=== PATIENT | male | born 2000 | race Hispanic/Latino ===

== ENCOUNTER 2020-10-30 13:04 | Emergency (ER) | payer SELFPAY ==
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
[2020-10-30 13:08] VITALS: BP 138/83; PULSE 95; RESP 16; TEMP 37.3; O2SAT 99
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
--- NOTE | 2020-10-30 14:24 | PC.NURSE ---
PT YELLING OUT FROM ROOM. ATTEMPTED TO TAKE OFF C-COLLAR. SPOKE WITH DR VELARDE WHO OK'ED COLLAR TO BE REMOVED AND STATES HE WILL SPEAK WITH PT SHAY.
[2020-10-30 14:30] VITALS: BP 135/80; PULSE 108; RESP 18; O2SAT 96
== END 2020-10-30 14:30 | disposition home or self-care (01) ==
PROVIDERS: Emergency Provider Emergency Medicine
DX: S00.03XA Contusion of scalp, initial encounter (principal); Y08.02XA Assault by strike by baseball bat, initial encounter
CPT/HCPCS: 70450; 70486; 72125; 99284

== ENCOUNTER 2022-05-19 06:04 | Emergency (ER) | payer SELFPAY ==
[2022-05-19 06:12] VITALS: BP 135/87; PULSE 95; RESP 18; TEMP 36.9; O2SAT 100
--- NOTE | 2022-05-19 08:48 | ED.EAR ---
HPI - Ear Problem General Chief complaint: Ear Stated complaint: bilateral ear pain Time Seen by Provider: 05/19/22 08:31 Source: patient and family Mode of arrival: ambulatory Limitations: no limitations History of Present Illness HPI Narrative: 21 years old male presents with bilateral ear aches mainly right 1. Patient denies any fever, chills, nausea, vomiting, patient use Q-tips to clean ears. No recent swimming in a pool. Related Data Allergies Allergy/AdvReac Type Severity Reaction Status Date / Time No Known Allergies Allergy Unknown Unverified 05/19/22 07:44 Review of Systems Review of Systems: All systems reviewed & are unremarkable except as noted in HPI and below PMFSH Past Medical History Medical History Healthy adult male Surgical History Surgical History No history of previous surgery Social History Social History Tobacco type: cigarettes Exam Narrative: General appearance: Well-developed, well-nourished Skin: Normal color Head: Normocephalic, nontraumatic Eyes: Clear conjunctiva ENT: Oropharynx normal, severe tenderness, auditory canal, swelling, slight clear discharge, mainly right ear. Neck: Supple, nontender Chest and respiratory: Airway patent, no respiratory distress, no accessory muscle use Heart: Regular rate/rhythm Neurologic: Alert and oriented ?3, SUPERVISOR PROCESS TESTING is normal as tested, no gross motor deficit Course Course Emergency Course: Stable Vital Signs Vital signs: Vital Signs Temperature 36.9 C 05/19/22 06:12 Pulse Rate 95 05/19/22 06:12 Respiratory Rate 18 05/19/22 06:12 Blood Pressure 135/87 05/19/22 06:12 Pulse Oximetry 100 05/19/22 06:12 Oxygen Delivery Room Air 05/19/22 06:12 Temperature 36.9 C 05/19/22 06:12 Pulse Rate 95 05/19/22 06:12 Respiratory Rate 18 05/19/22 06:12 Blood Pressure 135/87 05/19/22 06:12 Pulse Oximetry 100 05/19/22 06:12 Oxygen Delivery Room Air 05/19/22 06:12 Medical Decision Making Vital Signs Vital Signs: Vital Signs Temperature 36.9 C 05/19/22 06:12 Pulse Rate 95 05/19/22 06:12 Respiratory Rate 18 05/19/22 06:12 Blood Pressure 135/87 05/19/22 06:12 Pulse Oximetry 100 05/19/22 06:12 Oxygen Delivery Room Air 05/19/22 06:12 Temperature 36.9 C 05/19/22 06:12 Pulse Rate 95 05/19/22 06:12 Respiratory Rate 18 05/19/22 06:12 Blood Pressure 135/87 05/19/22 06:12 Pulse Oximetry 100 05/19/22 06:12 Oxygen Delivery Room Air 05/19/22 06:12 Discharge Plan Discharge Clinical Impression: Otitis externa Patient Disposition: Home, Self-Care Condition: Stable Instructions: Antibiotic Form, Earache (ED) Additional Instructions: Return if symptoms are worsening , call your family physician for appointment, take Tylenol as as needed for aches and pain, continue home medications., Take ibuprofen 600 every 6 hours as needed, Tylenol 650 every 6 hours as needed Prescriptions: New azithromycin [Zithromax] 250 mg tablet See Rx Instructions PO .COMPLEX Qty: 6 0RF Rx Instructions: take 500 mg today (day 1), then 250 mg for 4 days (days 2-5) Cortisporin-TC 3.3-3-10-0.5 mg/mL drops,suspension 4 drp EACH EAR TID Qty: 10 0RF Follow-up/Referrals: PHYSICIAN,BATHHOUSE KEEPER [Primary Care Provider] - Wilian Rodriguez MD [Physician] - 05/23/22 Stand Alone Forms: Work/School Release IP
[2022-05-19] MEDS: HYDROcodone/acetaminophen (*CRX) 5-325 MG TABLET 1 TAB PO (09:09)
[2022-05-19] MEDS: IBUPROFEN 400 MG TABLET 800 MG PO (09:09)
[2022-05-19 09:15] VITALS: BP 146/84; PULSE 85; RESP 14; O2SAT 98
== END 2022-05-19 09:16 | disposition home or self-care (01) ==
PROVIDERS: Emergency Provider Emergency Medicine
DX: H60.93 Unspecified otitis externa, bilateral (principal)
CPT/HCPCS: 99283; A9270

== ENCOUNTER 2022-09-20 15:13 | Emergency (ER) | payer SELFPAY ==
[2022-09-20 15:20] VITALS: BP 129/74; PULSE 97; RESP 20; TEMP 36.6; O2SAT 99
--- NOTE | 2022-09-20 15:33 | ED.GENADULT ---
HPI - General Adult General Chief complaint: Upper Respiratory Infection Stated complaint: Abdominal Pain/Nausea/ Vomiting Time Seen by Provider: 09/20/22 15:36 Source: patient, RN notes reviewed and old records reviewed Mode of arrival: ambulatory Limitations: no limitations History of Present Illness HPI narrative: 23-year-old male presents to the [facility] with complaints of nausea vomiting and abdominal cramping since 6:00 a.m. this morning. Has taken and a Zofran and Tylenol. Brother has same symptoms Related Data Allergies Allergy/AdvReac Type Severity Reaction Status Date / Time No Known Allergies Allergy Unknown Unverified 05/19/22 07:44 Review of Systems Review of Systems: All systems reviewed & are unremarkable except as noted in HPI and below Constitutional: Constitutional: Reports no additional constitutional complaints Eyes: Eyes: Reports no additional eye complaints ENT: Reports system reviewed and no additional complaints, except as documented Cardiovascular: Cardiovascular: Reports no additional cardiovascular complaints, Denies chest pain and Denies dyspnea Respiratory: Respiratory: Reports no additional respiratory complaints, Denies chest congestion, Denies cough and Denies dyspnea Gastrointestinal: Gastrointestinal: Reports as per HPI, Denies abdominal pain, Reports nausea and Denies vomiting Musculoskeletal: Musculoskeletal: Reports no additional musculoskeletal complaints Integumentary/Breasts: Skin/Breast: Reports system reviewed and no additional complaints, except as docu Neurologic: Reports system reviewed and no additional complaints, except as documented Psychiatric: Psychiatric: Reports no additional psychiatric complaints Allergic/Immunologic: Allergic/Immunologic: Reports no additional allergic/immunologic complaints PMFSH Past Medical History Medical History Healthy adult male Surgical History Surgical History No history of previous surgery Social History Social History Tobacco type: cigarettes Comments At the time of my signature, I reviewed and agree with the nursing past medical, surgical, social, and family history. There is no relevant family history pertinent to the patient complaint. Exam Const: General: cooperative, healthy appearing, comfortable, no acute distress, well developed, alert and well nourished Nutritional Appearance: well nourished Orientation/consciousness: patient oriented x3 Limitations: no limitations HENMT: Head: normal to inspection Ears: hearing grossly normal bilaterally and external ears normal Face/Nose/Sinus: Normal external nose present, Normal nares present, Normal nasal mucous membranes and turbinates present and normal facial exam Face and sinus: normal facial exam Mouth: Yes Normal oral and palatal mucosa present, Yes lip normal and Yes moist mucous membranes Throat: posterior oropharynx normal and uvula midline Eyes: General: appearance normal, both eyes and all related structures Alignment and Position: alignment normal Periorbital: periorbital findings normal Conjunctivae: conjunctivae normal Pupils: Equal, round and reactive pupils present EOM: EOMs intact bilaterally Neck: Neck: normal visual inspection, full ROM, no lymphadenopathy and no meningeal signs Chest: Chest palpation & inspection: normal inspection of the chest Resp: Effort & Inspection: normal respiratory effort and able to speak in complete sentences Auscultation: clear to auscultation bilaterally, no crackles, no rales, no rhonchi and no wheezes Cardio: Rate: regular rate Rhythm: regular rhythm GI: Inspection: non-distended GI Palp: Yes Soft to palpation, No Tenderness to palpation present (GI), No Guarding due to palpation present (GI) and No Rebound tenderness present Auscultation: normal franco
== END 2022-09-20 16:14 | disposition home or self-care (01) ==
PROVIDERS: Emergency Provider Nurse Practitioner
DX: K29.70 Gastritis, unspecified, without bleeding (principal)
CPT/HCPCS: 87081; 87147; 87804; 87880; 99213; G0463